=== PATIENT | female | born 1985 | race Caucasian/White ===

== ENCOUNTER 2018-07-04 00:03 | Emergency (ER) | payer MEDICAID, OTHER ==
[~2018-07-04] VITALS: Ht 175.3 cm; Wt 129.3 kg
[~2018-07-04 00:03] MED LIST: IBP600T1 PO; OXYC-12 PO
--- NOTE | 2018-07-04 00:27 | ED Upper Extremity ---
General Chief Complaint: Laceration Stated Complaint: CUT FINGER ON GLASS Source: patient, other Exam Limitations: no limitations History of Present Illness Date Seen by Provider: Jul 04, 2018 Time Seen by Provider: 00:18 Initial Comments The patient presents to ER by private conveyance with chief complaint of about 30-40 minutes prior to arrival she was washing a drinking glass fell and broke and she lacerated her left hand third digit on the palmar side. She has difficulty flexing her finger now. She had a tetanus shot in 2016. She does not take any medications or control. She is accompanied by her fiance and friend. She took ibuprofen 800 mg just prior to arrival. Allergies and Home Medications Allergies Coded Allergies: No Known Allergies (Verified Allergy, Unknown, 10/02/06) Home Medications Ibuprofen 600 Mg Tab, 600 MG PO Q6HR PRN, (Reported) DIRECTED Oxycodone Hcl/Acetaminophen 1 Each Tablet, 1 EACH PO PRN, (Reported) TAKE 1 OR 2 TAB DIRECTED Patient Home Medication List Home Medication List Reviewed: Yes Review of Systems Constitutional: No chills, No fever EENTM: No ear discharge, No eye pain Cardiovascular: No chest pain, No palpitations Past Tmjwwdh-[id number]-Yliqkg Hx Patient Social History Alcohol Use: Denies Use Recreational Drug Use: No Smoking Status: Never a Smoker Recent Foreign Travel: No Contact w/Someone Who Travel: No Past Medical History Reproductive Disorders: No Physical Exam Vital Signs Capillary Refill : Height, Weight, BMI Height: '" Weight: lbs. oz. kg; BMI Method: General Appearance: WD/WN, no apparent distress Cardiovascular: normal peripheral pulses, regular rate, rhythm Respiratory: no respiratory distress, no accessory muscle use Wrist: Yes normal inspection, Yes non-tender, Yes no evidence of injury, Yes normal ROM Hand: Left (history 2 cm laceration linear at the distal end of the proximal phalanx third digit. It is marginally hemostatic.), laceration, limited ROM ( the superficial flexor tendon appears to be completely severed and the profundus is about 80-90% severed. Patient has no flexion actively.) Procedures/Interventions Wound Location: Upper Extremities Other Wound Location Left hand third digit palmar side Wound Length (cm): 2.5 Wound's Depth, Shape: into muscle, linear, tendon (laceration of the flexor superficialis and partial laceration of the flexor profundus) Wound Explored: clean Irrigated w/ Saline (ccs): 200 Betadine Prep?: Yes Anesthesia: 1% Lidocaine Volume Anesthetic (ccs): 6 Wound Debrided: minimal Suture: Prolene Suture Size: 4-0 Number of Sutures: 8 Layer Closure?: 1 Progress After doing a digital block in the usual fashion. Thoroughly clean the wound with chlorhexidine and then soaked in Betadine. We then explored the wound but did not find any glass fragments or other foreign debris. We did note that the superficial flexor tendon was completed be severed and the profundus was mostly Severed. We will then closed the wound loosely using 8 4-0 Prolene stitches. This obtained hemostasis. Patient tolerated procedure well. Progress/Results/Core Measures Results/Orders My Orders Orders - NATI WALTER Lidocaine 1% Inj 20 Ml (Xylocaine 1% Inj (07/04/18 00:30) Progress Progress Note : Time: 00:26 Progress Note Plan to clean the wound with chlorhexidine and Betadine followed by digital block with lidocaine and explored the wound and see if she has any disrupted tendon function or foreign debris. Then plan to stitch the wound closed. We'll put her in aluminum finger splint had a slightly flexed position. Consults : Consulting Physician: YASIR ROBERTO DO Consults Notes Discussed the case and he agrees that she is to be seen on urgent basis outpatient by the hand surgeon Dr. Light and the best way to facilitate that would be to have her follow-up Thursday morning at his office by calling for an appointment. He recommends loose stitches to reapproximate scan and closed with a dressing. Departure Impression Primary Impression: Laceration of finger of left hand with complication Qualified Codes: S61.412A - Laceration without foreign body of left hand, initial encounter Additional Impression: Flexor tendon laceration of finger with open wound Qualified Codes: S56.129A - Laceration of flexor muscle, fascia and tendon of unspecified finger at forearm level, initial encounter; S61.209A - Unspecified open wound of unspecified finger without damage to nail, initial encounter Disposition: HOME, SELF-CARE Condition: Stable Departure-Patient Inst. Decision time for Depature: 01:26 Referrals: YASIR ROBERTO ANGELA C DO (PCP/Family) Primary Care Physician Patient Instructions: Laceration Repair With Stitches (DC) Add. Discharge Instructions: The tendons of your finger have been severed and will need to be urgently within the next One week by a hand surgeon. Dr. Roberto, orthopedic surgery like to see you Thursday to help arrange follow-up with the hand surgeon Dr. Light. Please call his office at the above listed phone number Thursday morning at 8 AM. Keep the wound clean with regular soap and water and apply a thin layer of Vaseline over the stitches to help keep the dressing from sticking to it. Change the dressing daily or as it becomes soiled. If you have bleeding apply direct pressure and raise the finger above the level of your heart for 20 minutes area Take the antibiotics 1 capsule twice a day to prevent infection for the next week. If you have pain you can use Tylenol 1000 mg every 8 hours and/or ibuprofen 800 mg every 8 hours. If you have significant pain beyond that you can use tramadol 1 tablet every 6 hours as needed. All discharge instructions reviewed with patient and/or family. Voiced understanding. Scripts Tramadol HCl (Tramadol HCl) 50 Mg Tablet 50 MG PO Q6H PRN for PAIN, #12 TAB 0 Refills Prov: NATI WALTER 07/04/18 Cephalexin (Keflex) 500 Mg Capsule 500 MG PO BID for 7 Days, #14 CAP 0 Refills Prov: NATI WALTER 07/04/18 Work/School Note: Work Release Form Date Seen in the Emergency Department: Jul 04, 2018 Return to Work: Jul 05, 2018 Restrictions: Need Release from Doctor Other Restrictions Listed Below: Do not submerse or use left hand until cleared by surgeon. NATI WALTER Jul 04, 2018 00:27
[2018-07-04] MEDS ORDERED: LIDOCAINE 1% INJ 20 ML 20 ML VIAL INJ ONE (00:30)
[2018-07-04] MEDS ORDERED: TRAM50TA2 PO (01:31)
[2018-07-04] MEDS ORDERED: CEPH-507 PO (01:31)
[2018-07-04 03:38] VITALS: BP 115/70
== END 2018-07-04 02:15 | disposition home or self-care (01) ==
LOC: EDUNIT# 00:03 → ER 00:07
DX: S66.123A Laceration of flexor muscle, fascia and tendon of left middle finger at wrist and hand level, initial encounter (principal); S61.213A Laceration without foreign body of left middle finger without damage to nail, initial encounter; W25.XXXA Contact with sharp glass, initial encounter
CPT/HCPCS: 29130